=== PATIENT | female | born 1960 | race Hispanic/Latino ===

== ENCOUNTER → 2018-03-22 | Outpatient (CLI) | payer MEDICAID | LOC: LAB.O 09:38 | PROVIDERS: ATTEND Nurse Practitioner Family | DX: I10 Essential (primary) hypertension (principal); E11.65 Type 2 diabetes mellitus with hyperglycemia; E03.9 Hypothyroidism, unspecified; E78.2 Mixed hyperlipidemia ==

== ENCOUNTER → 2018-05-15 | Outpatient (CLI) | payer MEDICAID, OTHER ==
--- NOTE | 2018-05-15 14:42 | CT ---
EXAM DESCRIPTION: Abdomen/Pelvis w/wo Contrast CLINICAL HISTORY: 57 years Female, UNSPECIFIED ABDOMINAL PAIN COMPARISON: None available. TECHNIQUE: Contiguous 3 mm axial images were obtained from the lung bases to the level of the proximal femora before and after the administration of intravenous and oral contrast. Sagittal and coronal reconstructions were reviewed. FINDINGS: THORAX: Moderate size pericardial effusion is noted. The imaged lower thorax otherwise appears normal. LIVER: The liver demonstrates diffuse fatty infiltration. No intrahepatic biliary ductal dilatation or focal masses. GALLBLADDER: Surgically absent. PANCREAS: Appears normal with no cystic or solid lesions. SPLEEN: Normal ADRENAL GLANDS: 2.5 x 1.8 cm right adrenal adenoma is noted. The left adrenal gland appears normal. KIDNEYS: Simple cysts are identified in the right kidney. Left kidney appears normal. No hydronephrosis or perinephric fluid collections bilaterally. No focal masses are identified. The visualized ureters appear grossly unremarkable. STOMACH: The stomach is not well-distended limiting detailed evaluation. SMALL BOWEL: The small bowel loops demonstrate variable degrees of distention with no abnormal dilatation or other signs to suggest bowel obstruction. LARGE BOWEL: Scattered colonic diverticuli are noted. The appendix is well-visualized and appears normal No evidence of free intraperitoneal air or fluid. RETROPERITONEUM: The abdominal aorta is nonaneurysmal with moderate atherosclerosis. The inferior vena cava is normal in size and caliber. No abnormally enlarged retroperitoneal lymph nodes are identified. URINARY BLADDER:The urinary bladder is well-distended with no gross abnormality. The uterus is surgically absent. Bilateral ovaries appear normal. ADDITIONAL FINDINGS: None. BONES: Mild degenerative changes are identified in the visualized bones.No evidence of osteophytic or osteoblastic lesions. IMPRESSION: 1. Moderate sized pericardial effusion is noted. 2. Hepatic steatosis. 3. 2.4 x 1.8 cm right adrenal adenoma. 4. Scattered colonic diverticulosis. This exam was performed according to our departmental dose-optimization program, which includes automated exposure control, adjustment of the mA and/or kV according to patient size and/or use of iterative reconstruction technique. Electronically signed by: Genevieve Cuevas MD 05/15/2018 2:41 PM CDT
== END ==
LOC: YCFC.O 09:51
PROVIDERS: ATTEND Nurse Practitioner Family
DX: K57.30 Diverticulosis of large intestine without perforation or abscess without bleeding (principal); D35.01 Benign neoplasm of right adrenal gland; K76.0 Fatty (change of) liver, not elsewhere classified

== ENCOUNTER → 2018-07-12 | Outpatient (CLI) | payer OTHER ==
--- NOTE | 2018-07-13 16:09 | MAM ---
EXAM DESCRIPTION: 3D Screening BILATERAL : Digital Mammography. CLINICAL HISTORY: 57 years Female SCREENING . No complaints. No personal or family history of breast cancer. Childbirth. Postmenopausal. No HRT. Lifetime risk of developing breast cancer (Tyrer-Cuzick model)(%): 6.0. COMPARISON: Baseline study at this facility.. No prior reports available. TECHNIQUE: Bilateral CC and MLO projection full-field images, digital tomosynthesis mammographic technique. Bilateral digital 2-D full-field MLO images. CAD not utilized. FINDINGS: The breast parenchymal density pattern is: Scattered areas of fibroglandular density. No skin thickening or nipple retraction. Bilateral axillary lymph nodes. Bilateral solitary large calcifications. Minimal fibroglandular tissues near the nipple. Slightly more prominent in the retroareolar right breast with minimal focal asymmetry. Not associated with microcalcifications. No focal, stellate mass or density, focal asymmetry , and no suspicious microcalcifications left breast. IMPRESSION: BI-RADS CATEGORY: 0 - INCOMPLETE- Need additional imaging evaluation. FOLLOW-UP: Recall for additional imaging: Targeted right breast ultrasound region of interest. Diagnostic digital imaging if indicated after ultrasound examination.. Written communication concerning the IMPRESSION and Follow-up, will be mailed to the patient and referring health care provider. Electronically signed by: Joaquin Thomas MD 07/13/2018 4:07 PM CDT
== END ==
LOC: MAMMO 10:00
PROVIDERS: ATTEND Nurse Practitioner Family
DX: Z12.31 Encounter for screening mammogram for malignant neoplasm of breast (principal)

== ENCOUNTER → 2018-07-19 | Outpatient (CLI) | payer OTHER ==
--- NOTE | 2018-07-19 15:10 | RAD ---
EXAM DESCRIPTION: Knee,Left Complete CLINICAL HISTORY: 57 years Female, KNEE PAIN TECHNIQUE: 3 views of the left knee were performed. COMPARISON: None available. FINDINGS: The visualized bones appear well mineralized. No acute fracture or dislocation. No evidence of suprapatellar joint effusion. Chondrocalcinosis of the medial and lateral compartment joint spaces noted. The soft tissues appear grossly unremarkable. At indeterminate calcific densities noted along the posterior aspect of the knee joint within the soft tissues, could represent a vascular calcification. IMPRESSION: 1. No acute fracture or dislocation. 2. Chondrocalcinosis of medial and lateral compartment joint spaces could represent CPPD (calcium pyrophosphate deposition disease) in appropriate clinical setting. Electronically signed by: Jarad Pepe MD 07/19/2018 3:09 PM [employer]
--- NOTE | 2018-07-19 15:15 | RAD ---
EXAM DESCRIPTION: Lumbar Spine 5 Views CLINICAL HISTORY: 57 years Female, LOW BACK PAIN COMPARISON: None available. FINDINGS: Normal lumbar lordosis is maintained. The vertebral body heights and intervertebral disc spaces are well-maintained. No acute compression fractures. No evidence of spondylolisthesis. Multilevel degenerative disease of the lumbar spine noted. Bilateral facet arthropathy is also seen. The prevertebral soft tissues demonstrate atherosclerotic calcifications of the abdominal aorta. Bilateral SI joint arthropathy is also seen. IMPRESSION: 1. No acute compression fracture. No evidence of spondylolysis. 2. Multilevel degenerative of the lumbar spine with bilateral facet arthropathy and bilateral SI joint arthropathy changes. Electronically signed by: Jarad Pepe MD 07/19/2018 3:14 PM [facility]
--- NOTE | 2018-07-19 15:21 | RAD ---
EXAM DESCRIPTION: Wrist,Right 3 Views CLINICAL HISTORY: 57 years Female, WRIST PAIN COMPARISON: None available. FINDINGS: The visualized bones are well-mineralized.No acute fracture or dislocation. The carpal arcs are well-maintained. The soft tissues appear grossly unremarkable. IMPRESSION: 1. Grossly normal radiographs of the right wrist. Electronically signed by: Jarad Pepe MD 07/19/2018 3:19 PM [facility]
== END ==
LOC: RAD 12:23
PROVIDERS: ATTEND Nurse Practitioner Family
DX: M25.531 Pain in right wrist (principal); M12.88 Other specific arthropathies, not elsewhere classified, other specified site; M11.262 Other chondrocalcinosis, left knee; M54.5 Low back pain; M25.562 Pain in left knee

== ENCOUNTER → 2018-07-25 | Outpatient (CLI) | payer OTHER ==
--- NOTE | 2018-07-25 10:36 | US ---
EXAM DESCRIPTION: Breast,Right: Ultrasound CLINICAL HISTORY: 57 [id number] COMPARISON: Digital screening tomosynthesis bilateral breast 07/12/2018. No diagnostic mammogram today. TECHNIQUE: Transcutaneous scanning of the right breast utilizing cook-scale and Doppler modes. Scanning performed by the product coordinator ; observed by Dr. Thomas. FINDINGS: Scanning retroareolar right breast. Mixed fibroglandular and fatty echotexture. No dominant solid mass or cyst. No parenchymal edema or large calcifications. No overlying skin changes. Normal vascularity. IMPRESSION: Benign exam. BIRAD CATEGORY: 2 BENIGN FINDINGS. RECOMMENDATIONS: FOLLOW UP: Return to routine digital bilateral mammographic screening, one year interval from July 2018 The FINDINGS and the FOLLOW-UP plan were reviewed in person with the patient after the examination. Written communication explaining the IMPRESSION and FOLLOW-UP will be mailed to the patient and referring care provider. According to the [employer], yearly mammograms are recommended starting at age 40 and continuing as long as a woman is in good health. Any breast change noted on a breast self-exam should be reported promptly to the patient's healthcare provider. Breast MRI is recommended for women with an approximately 20-25% or greater lifetime risk of breast cancer, including women with a strong family history of breast or ovarian cancer and women who have been treated for Hodgkin's disease. A negative mammographic report should not delay tissue diagnosis in patients with significant clinical history or physical findings. Extremely dense breast tissue limits the sensitivity of digital mammography. Electronically signed by: Joaquin Thomas MD 07/25/2018 10:35 AM [facility]
== END ==
LOC: US 10:00
PROVIDERS: ATTEND Nurse Practitioner Family
DX: R92.8 Other abnormal and inconclusive findings on diagnostic imaging of breast (principal)

== ENCOUNTER → 2018-08-16 | Outpatient (CLI) | payer OTHER ==
--- NOTE | 2018-08-17 08:12 | RAD ---
EXAM DESCRIPTION: Pelvis CLINICAL HISTORY: PAIN IN LEFT HIP COMPARISON: None FINDINGS: Single frontal view the pelvis. Moderate bilateral degenerative sacroiliitis is present. No acute fracture of the pelvic ring. No advanced hip joint osteoarthritis. Facet arthritis of the lumbar spine lower levels L4-5 and L5-S1. Mild to moderate atherosclerotic disease. IMPRESSION: No acute radiographic finding. Moderate bilateral degenerative sacroiliitis. Degenerative spondylosis lower lumbar spine. Intact bilateral hips without displaced fracture or advanced osteoarthritis. Electronically signed by: Tashi Naqvi MD 08/17/2018 8:10 AM [facility]
== END ==
LOC: RAD 08:53
PROVIDERS: ATTEND Orthopaedic Surgery
DX: M46.1 Sacroiliitis, not elsewhere classified (principal); M47.896 Other spondylosis, lumbar region; M25.552 Pain in left hip

== ENCOUNTER → 2018-08-29 | Outpatient (CLI) | payer OTHER | LOC: LAB.O 14:45 | DX: I31.3 Pericardial effusion (noninflammatory) (principal) ==

== ENCOUNTER 2018-10-13 11:26 | Emergency (ER) | payer OTHER ==
[2018-10-13] MEDS ORDERED: ATORVASTATIN 20 MG TAB PO ONE (11:36)
[2018-10-13] MEDS ORDERED: NITROGLYCERIN 0.4 MG 25 EA TAB SL ONE (11:36)
[2018-10-13] MEDS ORDERED: ASPIRIN (CHEWABLE) 81 MG TAB PO ONE (11:36)
--- NOTE | 2018-10-13 11:41 | ED.PDOC ---
History of Present Illness - General Chief Complaint: Chest Pain/OH Time Seen by Provider: 10/13/18 11:35 Source: patient Exam Limitations: no limitations - History of Present Illness Initial Comments: patient comes in today for chest pain. Patient had a heart attack back in 2000 and was very concerned this might be something do with her heart. Patient states some of the symptoms are little bit different but this pain is substernal, pressure, and radiates to her jaw. That is similar to how the heart attack last time started the last time it persisted with other symptoms such as nausea and sweating. This episode has been the pain alone. The pain started about a week ago but would go away with rest and worsened with increased activity. Patient states this morning its been there for about the past 4 or 5 hours consistently improves with rest but does not completely resolve. Patient rates as a 6 out of 10 currently. Patient did not take any nitroglycerin. Patient states she just didn't consider it. She has no nausea but has had a lot of reflux and states burping does seem to make the pain a little bit better. Patient has no diaphoresis, cough, fever, chills, or recent illness. She's had no trauma to the chest or increased activity. Patient's past medical history is significant for coronary artery disease, hypertension, hypothyroidism, and diabetes mellitus. Patient does not smoke. Timing/Duration: 1 week, getting worse, intermittent Severity/Quality: severe, pressure Location: substernal Chest Pain Radiation: jaw Activities at Onset: rest Prior Chest Pain/Cardiac Workup: heart attack Improving Factors: rest, other - GERD medications Worsening Factors: movement Nitro Today/Relief: no nitro taken today, provided by ED Aspirin Treatment Today: no aspirin today, provided by ED Associated Symptoms: heartburn Allergies/Adverse Reactions: Allergies NO KNOWN ALLERGY Allergy (Verified 10/13/18 11:58) Home Medications: Ambulatory Orders Amlodipine Besylate 10 mg PO DAILY 10/13/18 Aspirin [Adult Aspirin Regimen] 81 mg PO Q4HR PRN 10/13/18 Atorvastatin Calcium [Lipitor] 80 mg PO DAILY 10/13/18 Glipizide [Glucotrol] 10 mg PO BID 10/13/18 Levothyroxine Sodium [Levo-T] 100 mcg PO DAILY 10/13/18 Losartan Potassium & Hydrochlo [Hyzaar 100-12.5 mg] 1 tab PO DAILY 10/13/18 Meloxicam 15 mg PO DAILY 10/13/18 Metformin HCl [Metformin HCl ER] 500 mg PO BID 10/13/18 Nitroglycerin 0.4 mg Tab [Nitrostat] 0.4 mg SL .Q5M PRN #1 bttl 10/13/18 Nitroglycerin [Nitrostat] 1 ea SL PRN PRN 10/13/18 Review of Systems - Review of Systems Constitutional: States: no symptoms reported. Denies: chills, fever, weakness EENTM: States: no symptoms reported, eye pain. Denies: ear pain, nose pain, nose congestion, throat pain Respiratory: States: no symptoms reported. Denies: cough, short of breath, wheezing Cardiology: States: chest pain. Denies: edema, palpitations, syncope Gastrointestinal/Abdominal: States: see HPI, other - GERD. Denies: abdominal pain, diarrhea, nausea, vomiting Genitourinary: States: no symptoms reported Musculoskeletal: States: no symptoms reported Past Medical History (General) - Patient Medical History Hx Cardiac Disorders: Yes - AMI in 2000 Hx Hypertension: Yes Hx Thyroid Disease: Yes - hypothyroidism Hx Diabetes: Yes Family Medical History - Family History Mother Family History: No Known Living Status: Physical Exam - Physical Exam General Appearance: Alert, Anxious, No apparent distress Eyes, Ears, Nose, Throat Exam: PERRL/EOMI, normal ENT inspection, TMs normal, pharynx normal Neck: non-tender, full range of motion, supple, normal inspection, carotid bruit Respiratory: chest non-tender, lungs clear, normal breath sounds, no respiratory distress Cardiovascular/Chest: normal peripheral pulses, regular rate, rhythm, no edema, no gallop, no murmur, other - no pain to palpation of the chest wall Peripheral Pulses: radial,right: 2+, radial,left: 2+ Gastrointestinal/Abdominal: normal bowel sounds, non tender, soft Extremity: non-tender Neurologic: alert, oriented x 3 Progress - Progress Progress: 10/13/18 12:10 after initial dose of nitro patient is asymptomatic - Results/Orders Results/Orders: Chest Xray: no active pulmonary disease 10/13/18 11:36 EKG Assessment ONCE 10/13/18 11:45 EKG STAT Laboratory Results WBC 8.1 K/mm3 (4.8-10.8) 10/13/18 11:36 RBC 4.79 M/mm3 (4.20-5.40) 10/13/18 11:36 Hgb 14.2 gm/dL (12.0-16.0) 10/13/18 11:36 Hct 43.0 % (36.0-47.0) 10/13/18 11:36 MCV 89.9 fl (81.0-99.0) 10/13/18 11:36 MCH 29.6 pg (27.0-31.0) 10/13/18 11:36 MCHC 32.9 g/dL (33.0-37.0) L 10/13/18 11:36 RDW 13.4 % (11.5-14.5) 10/13/18 11:36 Plt Count 298 K/mm3 (130-400) 10/13/18 11:36 MPV 8.8 fl (7.40-10.4) 10/13/18 11:36 Absolute Neuts (auto) 4.40 K/uL (1.8-6.8) 10/13/18 11:36 Absolute Lymphs (auto) 2.90 K/uL (1.0-3.4) 10/13/18 11:36 Absolute Monos (auto) 0.50 K/uL (0.2-0.8) 10/13/18 11:36 Absolute Eos (auto) 0.30 K/uL (0.0-0.4) 10/13/18 11:36 Absolute Basos (auto) 0.00 K/uL (0.0-0.1) 10/13/18 11:36 Neutrophils % 54.4 % (42.0-78.0) 10/13/18 11:36 Lymphocytes % 36.2 % (20.0-50.0) 10/13/18 11:36 Monocytes % 5.6 % (2.0-9.0) 10/13/18 11:36 Eosinophils % 3.2 % (1.0-5.0) 10/13/18 11:36 Basophils % 0.6 % (0.0-2.0) 10/13/18 11:36 Sodium 136 mmol/L (135-145) 10/13/18 11:36 Potassium 3.9 mmol/L (3.6-5.0) 10/13/18 11:36 Chloride 103 mmol/L (101-111) 10/13/18 11:36 Carbon Dioxide 24 mmol/L (21-31) 10/13/18 11:36 Anion Gap 12.9 (12-18) 10/13/18 11:36 BUN 23 mg/dL (7-18) H 10/13/18 11:36 Creatinine 0.93 mg/dL (0.6-1.3) 10/13/18 11:36 BUN/Creatinine Ratio 24.7 (10-20) H 10/13/18 11:36 Random Glucose 159 mg/dL (70-105) H 10/13/18 11:36 Serum Osmolality 279.0 mOsm/L (275-295) 10/13/18 11:36 Calcium 9.9 mg/dL (8.4-10.2) 10/13/18 11:36 Magnesium 1.5 mg/dL (1.8-2.5) L 10/13/18 11:36 Total Bilirubin 0.5 mg/dL (0.2-1.0) 10/13/18 11:36 AST 33 IU/L (10-42) 10/13/18 11:36 ALT 33 IU/L (10-60) 10/13/18 11:36 Alkaline Phosphatase 92 IU/L (42-121) 10/13/18 11:36 Creatine Kinase 63 IU/L (26-140) 10/13/18 11:36 CK-MB (CK-2) 2.2 ng/mL (0.0-4.4) 10/13/18 11:36 CK-MB (CK-2) % Not Reportable 10/13/18 11:36 Troponin I 0.03 ng/mL (0.01-0.05) 10/13/18 11:36 B-Natriuretic Peptide 8.9 pg/ml (0-100) 10/13/18 11:36 Serum Total Protein 8.1 gm/dL (6.4-8.2) 10/13/18 11:36 Albumin 4.3 g/dl (3.2-5.5) 10/13/18 11:36 Globulin 3.8 gm/dL (2.3-3.5) H 10/13/18 11:36 Albumin/Globulin Ratio 1.1 (1.1-1.9) 10/13/18 11:36 - EKG/XRAY/CT EKG: Sinus, no ST T wave changes, Unchanged from - 03/22/2018 Comments: anterior septal Q waves Departure - Departure Clinical Impression: Acute angina Disposition: Discharge to Home or Self Care Condition: Good Departure Forms: ED Discharge - Pt. Copy, Patient Portal Self Enrollment Instructions: DI for Chest Pain Referrals: Harmony Anderson, NIGHT SHIFT MANAGER [Primary Care Provider] - 1-2 Weeks Prescriptions: Nitroglycerin 0.4 mg Tab [Nitrostat] 0.4 mg SL .Q5M PRN #1 bttl PRN Reason: Chest Pain Home Medications: Ambulatory Orders Amlodipine Besylate 10 mg PO DAILY 10/13/18 Aspirin [Adult Aspirin Regimen] 81 mg PO Q4HR PRN 10/13/18 Atorvastatin Calcium [Lipitor] 80 mg PO DAILY 10/13/18 Glipizide [Glucotrol] 10 mg PO BID 10/13/18 Levothyroxine Sodium [Levo-T] 100 mcg PO DAILY 10/13/18 Losartan Potassium & Hydrochlo [Hyzaar 100-12.5 mg] 1 tab PO DAILY 10/13/18 Meloxicam 15 mg PO DAILY 10/13/18 Metformin HCl [Metformin HCl ER] 500 mg PO BID 10/13/18 Nitroglycerin 0.4 mg Tab [Nitrostat] 0.4 mg SL .Q5M PRN #1 bttl 10/13/18 Nitroglycerin [Nitrostat] 1 ea SL PRN PRN 10/13/18 Additional Instructions: return to the ER for chest pain not relieved by nitroglycerin, shortness of breath, return of symptoms. Follow up with cardiology on Monday. Rest over the weekend.
--- NOTE | 2018-10-13 12:05 | RAD ---
EXAM: Chest,1 View CLINICAL INDICATION: Chest pain COMPARISON: There is no previous study for comparison. FINDINGS: A single view of the chest was obtained. The heart size is normal. The pulmonary vascularity is unremarkable. The lungs are clear. There is no consolidation, infiltrate, pleural effusion, or pneumothorax. IMPRESSION: No evidence of active pulmonary disease. Electronically signed by: David Denise MD 10/13/2018 12:02 PM [facility]
[2018-10-13 14:52] VITALS: BP 116/78; TEMP 98; O2SAT 98
== END 2018-10-13 14:25 | disposition home or self-care (01) ==
LOC: ER 11:26
DX: I20.9 Angina pectoris, unspecified (principal); I25.2 Old myocardial infarction; E03.9 Hypothyroidism, unspecified; I10 Essential (primary) hypertension; E11.9 Type 2 diabetes mellitus without complications; Z79.82 Long term (current) use of aspirin; Z79.899 Other long term (current) drug therapy

== ENCOUNTER → 2018-11-14 | Outpatient (CLI) | payer OTHER | LOC: LAB.O 11-12 12:33 | PROVIDERS: ATTEND Nurse Practitioner Family | DX: I10 Essential (primary) hypertension (principal); E03.9 Hypothyroidism, unspecified; E11.65 Type 2 diabetes mellitus with hyperglycemia; E78.2 Mixed hyperlipidemia ==

== ENCOUNTER 2018-11-27 05:34 | Day surgery (SDC) | payer OTHER ==
[2018-11-27] MEDS ORDERED: BUPIVACAINE 0.25% INJ 30 ML VIAL INJ ONE (06:46)
[2018-11-27] MEDS ORDERED: LIDOCAINE 1% 10 ML VIAL INJ ONE ×2 (06:46→10:00)
[2018-11-27] MEDS ORDERED: SODIUM CHL 0.9% 100ML MINI-BAG 100 ML IVPB ONE (06:50)
[2018-11-27] MEDS ORDERED: ceFAZolin SODIUM 1 GM VIAL ONE (06:50)
[2018-11-27] MEDS ORDERED: LACTATED RINGERS 1,000 ML ONE (06:50)
[2018-11-27] MEDS: ceFAZolin SODIUM 1 GM VIAL ONE ×2 (07:39→07:42)
[2018-11-27] MEDS: VANCOMYCIN HCL INJ 1,000 MG VIAL IVPB ONE ×2 (07:40→07:43)
[2018-11-27] MEDS ORDERED: LACTATED RINGERS 1,000 ML IVS ONE (07:55)
[2018-11-27] MEDS ORDERED: MIDAZOLAM INJ 2 MG/2 ML VIAL ONE (08:12)
[2018-11-27] MEDS ORDERED: fentaNYL CITRATE INJ 50 MCG/ML AMP ONE (08:13)
[2018-11-27 09:20] VITALS: BP 112/68; TEMP 97.4; O2SAT 98
[2018-11-27] MEDS ORDERED: PROPOFOL 200 MG/20 ML VIAL IV ONE (10:00)
--- NOTE | 2018-11-29 08:44 | OP ---
DATE OF PROCEDURE: 11/27/18 PREOPERATIVE DIAGNOSIS: 1. Carpal tunnel syndrome. POSTOPERATIVE DIAGNOSIS: 1. Carpal tunnel syndrome. PROCEDURE: 1. Carpal tunnel release. SURGEON: Robert Roberts MD. COMMAND CENTER OFFICER: Joaquin Bhatti CST, SA-C. ANESTHESIA: Local with sedation. COMPLICATIONS: None. FINDINGS: Thickening of the transverse carpal ligament and narrowing of the median nerve. INDICATION: Ms. Pritchett has a history of pain and numbness in the hand secondary to her carpal tunnel syndrome. Because of her ongoing symptoms and failure of conservative measures, she requested operative intervention. After discussing the risks, benefits and alternatives to that, the patient has given informed consent for carpal tunnel release. PROCEDURE: The patient was brought to the Operating Room and placed in the supine position. Sedation was administered and local anesthetic was injected into the operative area under sterile conditions. After the injection of anesthetic, the arm was sterilely prepped and draped. A longitudinal incision was made directly overlying the transverse carpal ligament and blunt dissection was carried down to the ligament. The transverse carpal ligament was sharply transected along its length and a Cedar elevator was used to ensure complete release of the ligament. Once release had been confirmed, the wound was thoroughly irrigated and the wound was closed with Nylon suture. A sterile dressing was placed and the patient was taken to the Day Surgery Unit. POSTOPERATIVE PLAN: The patient has been encouraged to do range of motion of the digits and will followup with us in approximately two days. #[id number] MTDD
== END 2018-11-27 08:45 | disposition home or self-care (01) ==
LOC: AMB 05:34
PROVIDERS: ATTEND Orthopaedic Surgery
DX: G56.01 Carpal tunnel syndrome, right upper limb (principal); I10 Essential (primary) hypertension; I25.2 Old myocardial infarction; E11.9 Type 2 diabetes mellitus without complications; E66.9 Obesity, unspecified; F17.210 Nicotine dependence, cigarettes, uncomplicated; Z79.82 Long term (current) use of aspirin; Z79.899 Other long term (current) drug therapy
CPT/HCPCS: 01810; 36416; 64721; 80307; 81001; 82948; 87077; 87086; 87186; J0690; J2250; J3010; J3370; J3490; J7050; J7120

== ENCOUNTER → 2019-06-27 | Outpatient (CLI) | payer OTHER ==
--- NOTE | 2019-06-28 10:48 | RAD ---
EXAM DESCRIPTION: Tibia/Fibula,Left CLINICAL HISTORY: BONE PAIN COMPARISON: None. IMPRESSION: 2 views of the left tibia and fibula show no acute fracture, focal bone destruction, or joint dislocation. Moderate arterial vascular calcifications are seen mainly at the region of the popliteal artery and proximal trifurcation vessels. Calcifications of the menisci in the knees suggests chondrocalcinosis. Electronically signed by: Darrell Wright MD 06/28/2019 10:47 AM CDT
--- NOTE | 2019-06-28 10:49 | RAD ---
EXAM DESCRIPTION: Tibia/Fibula,Right CLINICAL HISTORY: BONE PAIN COMPARISON: None. IMPRESSION: 2 views of the right tibia and fibula show no acute fracture, focal bone destruction, or joint dislocation. Mild vascular calcifications are seen mainly in the region of the popliteal artery and proximal trifurcation vessels. Electronically signed by: Darrell Wright MD 06/28/2019 10:48 AM CDT
== END ==
LOC: YCFC.O 15:41
PROVIDERS: ATTEND Nurse Practitioner Family
DX: M89.8X9 Other specified disorders of bone, unspecified site (principal); D64.9 Anemia, unspecified; I70.202 Unspecified atherosclerosis of native arteries of extremities, left leg; M25.862 Other specified joint disorders, left knee

== ENCOUNTER → 2020-01-01 | Outpatient (CLI) | payer OTHER | LOC: YCFC.O 09:31 | PROVIDERS: ATTEND Family Medicine | DX: E11.65 Type 2 diabetes mellitus with hyperglycemia (principal); E03.9 Hypothyroidism, unspecified; I10 Essential (primary) hypertension; E78.5 Hyperlipidemia, unspecified ==

== ENCOUNTER → 2020-01-14 | Outpatient (CLI) | payer OTHER ==
--- NOTE | 2020-01-15 08:34 | CT ---
EXAM DESCRIPTION: Abdomen/Pelvis w/wo Contrast CLINICAL HISTORY: 59 years Female, EPIGASTRIC PAIN COMPARISON: CT abdomen pelvis dated 05/15/2018. TECHNIQUE: Contiguous 3 mm axial images were obtained from the lung bases to the level of the proximal femora before and after the administration of intravenous and oral contrast. Sagittal and coronal reconstructions were reviewed. FINDINGS: THORAX: Small pericardial effusion is present. Visualized lower thorax otherwise appears normal. LIVER: Mild intrahepatic and extrahepatic biliary ductal dilatation is felt to be secondary to cholecystectomy. No focal masses are identified. GALLBLADDER: Surgically absent. PANCREAS: Appears normal with no cystic or solid lesions. SPLEEN: Normal ADRENAL GLANDS: 2.2 cm nodule in the right adrenal gland demonstrates a density of less than 10 Hounsfield units on the precontrast phase and is most likely consistent with an adenoma. This appears stable compared to prior examination dated 05/15/2018. Left adrenal gland appears normal. KIDNEYS: A simple cyst is noted in the upper pole of the right kidney. No hydronephrosis or perinephric fluid collections bilaterally. The visualized ureters appear grossly unremarkable. STOMACH: Mild reflux esophagitis. The stomach is well-distended with no gross abnormality. SMALL BOWEL: The small bowel loops demonstrate variable degrees of distention with no abnormal dilatation or other signs to suggest bowel obstruction. LARGE BOWEL: Mild constipation. The appendix is well-visualized and appears normal No evidence of free intraperitoneal air or fluid. RETROPERITONEUM: The abdominal aorta is nonaneurysmal with moderate atherosclerosis. The inferior vena cava is normal in size and caliber. No abnormally enlarged retroperitoneal lymph nodes are identified. URINARY BLADDER:The urinary bladder is well-distended with no gross abnormality. Uterus is surgically absent. Bilateral ovaries appear normal. ADDITIONAL FINDINGS: None. BONES: Mild degenerative changes are identified in the visualized bones.No evidence of osteophytic or osteoblastic lesions. IMPRESSION: 1. Stable small pericardial effusion. 2. Stable 2.2 cm right adrenal nodule most likely representing an adenoma. 3. Mild reflux esophagitis. 4. Mild constipation. This exam was performed according to our departmental dose-optimization program, which includes automated exposure control, adjustment of the mA and/or kV according to patient size and/or use of iterative reconstruction technique. Electronically signed by: Genevieve Cuevas MD 01/15/2020 8:32 AM CDT
== END ==
LOC: CT 15:31
PROVIDERS: ATTEND Family Medicine
DX: I31.3 Pericardial effusion (noninflammatory) (principal); K21.0 Gastro-esophageal reflux disease with esophagitis; K59.00 Constipation, unspecified; E27.9 Disorder of adrenal gland, unspecified

== ENCOUNTER → 2020-02-21 | Outpatient (CLI) | payer OTHER ==
--- NOTE | 2020-02-21 16:48 | MAM ---
EXAM DESCRIPTION: 3D Screening BILATERAL : Digital Mammography. CLINICAL HISTORY: 59 years Female SCREENING . No complaints. No personal history of breast cancer. Mother with breast cancer at unknown age. Remote family history of breast cancer.. Menarche age 10. Childbirth age 20. Hysterectomy age unknown. Lifetime risk of developing breast cancer (Tyrer-Cuzick model)(%): 11.3 COMPARISON: Bilateral screening digital breast tomosynthesis July 2018. . TECHNIQUE: Bilateral CC and MLO projection full-field images, digital tomosynthesis mammographic technique. Bilateral digital 2-D full-field MLO images. CAD available for 2-D images. FINDINGS: The breast parenchymal density pattern is: Scattered areas of fibroglandular density. No skin thickening or nipple retraction. Axillary nodes. Solitary microcalcifications. No new focal, stellate mass or density, focal asymmetry , and no suspicious microcalcifications . Stable mammograms compared to prior study. Taking into account, differences in mammographic technique. IMPRESSION: Benign exam. BIRAD CATEGORY: 2 BENIGN FINDINGS. RECOMMENDATIONS: FOLLOW UP: Routine digital bilateral mammographic screening, one year interval from February 2020. Written communication explaining the IMPRESSION and follow-up, will be mailed to the patient and referring health care provider. According to the [employer], yearly mammograms are recommended starting at age 40 and continuing as long as a woman is in good health. Any breast change noted on a breast self-exam should be reported promptly to the patient's healthcare provider. Breast MRI is recommended for women with an approximately 20-25% or greater lifetime risk of breast cancer, including women with a strong family history of breast or ovarian cancer and women who have been treated for Hodgkin's disease. A negative mammographic report should not delay tissue diagnosis in patients with significant clinical history or physical findings. Extremely dense breast tissue limits the sensitivity of digital mammography. Electronically signed by: Joaquin Thomas MD 02/21/2020 4:47 PM CDT
--- NOTE | 2020-02-22 17:08 | US ---
EXAM DESCRIPTION: Carotid Duplex: ULTRASOUND. CLINICAL HISTORY: 59 years Female CORONARY ARTERIOSCLEROSIS COMPARISON: None. TECHNIQUE: Transcutaneous scanning utilizing cook-scale and Doppler modes to evaluate the bilateral carotid systems and vertebral arteries. Percentage of diameter of stenosis or no stenosis recorded will be based upon NASCET criteria. FINDINGS: Peak systolic/end diastolic (CM-Sec) CCA Right 74/17 Left 83/19. ICA Right proximal 78/30, distal 94/41. Left proximal 167/46, mid 85/27. Vertebral Right 30/11 Left 45/13. ECA (PS Only) Right 203 left 185. ICA/CCA peak systolic ratio: Right 1.3 Left 2.0 ICA/CCA end diastolic ratio: Right 2.4 Left 2.4 Vertebral arteries: antegrade flow. Comments: Atherosclerotic calcifications in the distal right common carotid and right proximal ICA with spectral broadening and color turbulent flow. Similar findings in the left common carotid bulb and ICA. Less than 50% diameter stenosis an area stenosis in the proximal right ICA. Area and diameter stenoses in the left common carotid bulb and proximal left ICA are 70-75% with spectral broadening and color turbulent flow in the left ICA.. IMPRESSION: 1. Doppler evaluation of the bilateral carotid systems and vertebral arteries shows no hemodynamically significant stenoses (less than 70%), but grayscale evaluation showing approximately 70% diameter an area stenosis in the left common carotid bulbs and proximal ICA. Consider correlation with carotid vertebral CTA or MRA. 2. Significant amount of plaque in the carotid arteries bilaterally. Bilateral vertebral arteries showed antegrade-cephalad flow. Electronically signed by: Joaquin Thomas MD 02/22/2020 5:06 PM CDT
== END ==
LOC: US 09:44
PROVIDERS: ATTEND Family Medicine
DX: Z12.31 Encounter for screening mammogram for malignant neoplasm of breast (principal); I25.10 Atherosclerotic heart disease of native coronary artery without angina pectoris; I65.23 Occlusion and stenosis of bilateral carotid arteries

== ENCOUNTER → 2020-03-06 | Outpatient (CLI) | payer OTHER | LOC: CT 08:51 | PROVIDERS: ATTEND Family Medicine | DX: Z01.812 Encounter for preprocedural laboratory examination (principal); I65.29 Occlusion and stenosis of unspecified carotid artery ==

== ENCOUNTER → 2020-03-09 | Outpatient (CLI) | payer OTHER | LOC: YCFC.O 12:19 | PROVIDERS: ATTEND Family Medicine | DX: N28.9 Disorder of kidney and ureter, unspecified (principal) ==

== ENCOUNTER → 2020-03-17 | Outpatient (CLI) | payer OTHER ==
--- NOTE | 2020-03-17 15:55 | MRI ---
EXAM DESCRIPTION: MRA Head and/or Neck CLINICAL HISTORY: CAROTID ARTERY DOPPLER ABNORMAL COMPARISON: None. TECHNIQUE: 2D and 3-D [id number] thin-section axial acquisitions from the lower neck through the base of the skull. 1.3 x 0.6 mm thickness. Non contrast. Gadolinium IV contrast could not be given due to patient's poor renal function. MIP reconstructions. FINDINGS: Typical origin of the left CCA from the aortic arch. Defect is noted on the anterior wall of the proximal left ICA. This is resulting in approximately 60% diameter stenosis. No significant narrowing seen in the remainder of the left ICA from this level to the base of the skull. Central flow defect is artifactual due to laminar flow. No significant narrowing intracranial, with symmetric bifurcation into the anterior middle cerebral artery. Typical origin of the right CCA from the right innominate artery. Approximately 30% diameter stenosis of the proximal right ICA. Laminar flow artifact in the ICA to the skull base. No significant narrowing in the intracranial segments with symmetric bifurcation to form the right middle cerebral artery and anterior cerebral artery. No aneurysm, no mass effect, and no vasculitis. Standard bilateral vertebral artery origins from the bilateral subclavian arteries. Symmetric appearance in the intervertebral foramina. Above the vertebra, the caliber of the right vertebral artery is slightly larger than the left. Normal junction of the basilar artery. Superior cerebellar artery origin proximal to the basilar artery bifurcation. Bilateral posterior cerebral arteries appear symmetric. No stenosis, no aneurysm, no mass effect, no vasculitis. IMPRESSION: 1. Approximately 60% diameter stenosis of the origin of the left ICA. This is not a critical stenosis as was seen on the ultrasound. Remainder of the vessels unremarkable. 2. No aneurysm, no mass effect, no vasculitis bilaterally Electronically signed by: Joaquin Thomas MD 03/17/2020 3:53 PM CDT
== END ==
LOC: MRI 08:58
PROVIDERS: ATTEND Family Medicine
DX: I65.22 Occlusion and stenosis of left carotid artery (principal); R94.39 Abnormal result of other cardiovascular function study

== ENCOUNTER → 2020-03-24 | Outpatient (CLI) | payer OTHER | LOC: ECHO 11:30 | PROVIDERS: ATTEND Family Medicine | DX: I25.10 Atherosclerotic heart disease of native coronary artery without angina pectoris (principal); I31.3 Pericardial effusion (noninflammatory); I34.0 Nonrheumatic mitral (valve) insufficiency; I36.1 Nonrheumatic tricuspid (valve) insufficiency ==

== ENCOUNTER → 2020-03-25 | Outpatient (CLI) | payer OTHER ==
--- NOTE | 2020-03-25 19:44 | CT ---
Procedure: CT LUNG SCREENING Exam Date: March 25, 2020. Ordering Provider: Prince Jefferson Clinical Indication: PERSONAL HISTORY OF TOBACCO USE current cigarette smoker. 25 pack years. This patient meets eligibility criteria for low-dose CT lung cancer screening. Comparison: Chest radiograph October 2018. Technique: Using a multislice scanner, sequential helical axial imaging was obtained in the thorax, 2.5 mm thickness, 2.5 mm separation, from the level of the thoracic inlet through the lung bases without IV contrast. A low dose protocol was utilized for BMI less than 30: BMI: 21. CTDI: 1.76 mGy. 120. kVp. 45 mA. DLP 54 mGy-cm. 2D sagittal and coronal reconstructed images, 6.0 mm thickness, were obtained. This exam was performed according to our departmental dose optimization program which includes use of automated exposure control, adjustment of the mA and/or kV according to patient size and/or use of iterative reconstruction technique. Nodule measurements under 10 mm are given as mean value of 3 axes diameters. FINDINGS: Lungs and large airways: Bilateral uniform parenchymal blebs. Centrilobular distribution predominantly upper lobes. No abnormal nodules and no masses. No focal infiltrates. Pleura and space: Focal thickening posterior abutting the right apex. Otherwise negative. Mediastinum and zeke: evaluation limited by low dose technique and lack of IV contrast. Small lymph nodes with no dominant solid mass. Heart and great vessels: Multiple coronary arteries with calcifications. Pericardial thickening versus effusion. Atherosclerotic calcifications in several brachiocephalic vessels, aortic arch, and descending thoracic aorta. Chest wall, lower neck, axillae: Evaluation also limited by same factors as described above. Small axillary nodes bilaterally. Question of focal asymmetry with calcification mid third of the right breast near the posterior nipple line, unremarkable mammogram 4 weeks ago. Upper abdomen: Evaluation limited by low-dose technique. No free fluid or free air. Included spleen liver and abdominal aortograms negative. Limited by lack of IV contrast. Surgical clips in the gallbladder fossa with no fluid. Osseous structures: Evaluation limited by low dose MIP technique. Multiple levels of thoracic spondylosis. Minimal sternoclavicular arthrosis along with glenohumeral joints. Thoracic levoscoliosis. IMPRESSION: Minimal emphysematous disease in the upper lobes. No abnormal nodule and no mass. No focal infiltrate. [facility] Best Practice Recommendations: please see below for Lung RADS category and FOLLOW-UP.* *Lung RADS category Category 1 - No nodule or definitely benign nodules (probability of malignancy less than 1%). Follow-up: Continue annual screening with Low Dose Chest CT in 12 months. Electronically signed by: Joaquin Thomas MD 03/25/2020 7:42 PM CDT
== END ==
LOC: CT 10:30
PROVIDERS: ATTEND Family Medicine
DX: Z87.891 Personal history of nicotine dependence (principal); J43.9 Emphysema, unspecified

== ENCOUNTER → 2020-04-07 | Outpatient (CLI) | payer OTHER ==
--- NOTE | 2020-04-07 14:45 | RAD ---
Procedure: XR ABDOMEN 1 VIEW (KUB) Exam Date: 04/07/2020 Ordering Provider: Romana Renteria Clinical Indication: NAUSEA Comparison: 01/14/2020 CT abdomen pelvis Findings: Surgical clips in the right upper quadrant. Nonobstructive bowel gas pattern. Moderate to large stool burden in the transverse colon. There is no pneumoperitoneum. There are no suspicious calcifications. There is no acute osseous abnormality. Impression: 1. No acute findings. 2. Moderate to large stool burden in the transverse colon. Electronically signed by: Stephon Davis MD 04/07/2020 2:43 PM CDT
== END ==
LOC: YCFC.O 10:58
PROVIDERS: ATTEND Family Medicine
DX: R11.2 Nausea with vomiting, unspecified (principal); K59.00 Constipation, unspecified

== ENCOUNTER → 2020-05-22 | Outpatient (CLI) | payer OTHER ==
--- NOTE | 2020-05-22 13:51 | RAD ---
EXAM DESCRIPTION: Barium Swallow: Rad-Fluoroscopy. CLINICAL HISTORY: NAUSEA AND VOMITING COMPARISON: None TECHNIQUE: Fluoroscopy performed by Dr. Thomas The patient swallowed barium pill with water under fluoroscopic visualization. The patient swallowed heavy density barium under fluoroscopic visualization. The images were obtained with the patient standing and horizontal. Patient drank medium density barium through a straw in the semi-prone position. 91 fluoroscopic cine loop images. 9 1 single static fluoroscopic images. Total fluoroscopy time was 2.3 minutes. Dose 61.6 mGy.. DAP: 11.7 Gy-cm2.. FINDINGS: Patient swallowed barium pill with water and the pill was delayed at the gastroesophageal junction. No premature swallowing. No laryngeal aspiration or penetration. Proximal transverse esophagus is narrowed at the C7-T1 level. Anterior marginal C6-C7 endplate spurs abutting the posterior esophagus. Primary peristaltic wave is seen in the proximal three fourths of the esophagus but delayed in the distal fourth and secondary and tertiary contractions are visualized. Also seen is minimal local esophageal reflux and barium stasis. Minimal narrowing of the gastroesophageal junction. No definite mucosal lesions. When patient swallows in the semiprone position, secondary and tertiary contractions are again seen distally as well as a sliding hiatal hernia. No significant reflux from the hernia. Thickened folds in the stomach. Scattered regions of mucosal irregularity. No gastroduodenal obstruction. Normal gaseous distention of the duodenal bulb. IMPRESSION: 1. Narrowing of the transverse proximal esophagus at the C6-C7 level. This appears to be smooth, and causing temporary dilation proximally. Anterior osteophytes at C6-C7 endplates are abutting the posterior esophagus at this level. No laryngeal penetration or aspiration. 2. Normal primary peristaltic wave proximal three quarters of the esophagus with secondary and tertiary contractions in the distal fourth. Delayed transit through the gastroesophageal junction which is minimally narrowed. No mucosal lesions. Small sliding hiatal hernia. No significant gastroesophageal reflux in the horizontal position and with maneuvers to increase abdominal pressure. 3. Thickened gastric folds with mucosal irregularity. Electronically signed by: Joaquin Thomas MD 05/22/2020 1:49 PM CDT
== END ==
LOC: RAD 09:46
PROVIDERS: ATTEND Family Medicine
DX: R11.2 Nausea with vomiting, unspecified (principal); K22.9 Disease of esophagus, unspecified; K22.4 Dyskinesia of esophagus

== ENCOUNTER → 2020-08-11 | Outpatient (CLI) | payer OTHER | LOC: YCFC.O 12:55 | PROVIDERS: ATTEND Family Medicine | DX: N28.9 Disorder of kidney and ureter, unspecified (principal) ==

== ENCOUNTER → 2020-09-09 | Outpatient (CLI) | payer OTHER ==
--- NOTE | 2020-09-09 12:11 | RAD ---
EXAM DESCRIPTION: Chest,2 Views CLINICAL HISTORY: PLEURISY COMPARISON: October 13, 2018 TECHNIQUE: PA/lateral FINDINGS: Two views of the chest demonstrate previous sternotomy since prior examination. Right lung is well-expanded and clear there is haziness and pleural thickening and blunting in the posterior left lung base with loss of the normal costophrenic angle posteriorly. This may very well account for the patient's history of pleurisy. No pneumothorax is seen. The mid and upper lung field on the left is clear heart size is borderline enlarged allowing for departmental technique. Normal vascularity and normal appearance of the mediastinum. IMPRESSION: 1. Interval sternotomy since previous October [address] lung screening study March 2020. 2. Pleural thickening and indistinctness predominantly in the posterior left lung base consistent with postoperative changes. 3. Upper normal heart with normal vascularity without additional inflammatory changes. Electronically signed by: Jeronimo Camara MD 09/09/2020 12:10 PM [employer]
== END ==
LOC: YCFC.O 11:33
PROVIDERS: ATTEND Family Medicine
DX: R09.1 Pleurisy (principal); J92.9 Pleural plaque without asbestos; E11.9 Type 2 diabetes mellitus without complications; I10 Essential (primary) hypertension; M79.10 Myalgia, unspecified site; Z98.890 Other specified postprocedural states